=== PATIENT | female | born 1940 | race Caucasian/White ===

== ENCOUNTER 2021-03-31 09:39 | Emergency (ER) | payer OTHER ==
[2021-03-31 10:13] LABS: BASOPHIL 0 % (0-2); EOSINOPHIL 0.5 % (0-7); MCH 27.4 pg (25.0-31.0); MCHC 30.8 g/dL (32.0-36.0); MONOCYTE 1.4 % (0-12); MPV 10.7 fL (6.0-9.5); NRBC 0; PLT 176 K/uL (150-400); RBC 4.38 M/uL (4.20-5.40); RDW 16.3 % (11.5-14.0); WBC 2.2 K/uL (4.0-10.5)
[2021-03-31 10:17] LABS: NEUTROPHIL 91.2 % (41-80)
[2021-03-31 10:32] LABS: LACTIC ACID 2.4 mmol/L (0.4-1.9)
[2021-03-31 10:33] LABS: ALBUMIN 2.8 g/dL (3.4-5.0); BILIRUBIN - TOTAL 1.3 mg/dL (0.2-1.0); BUN/CREAT RATIO (CALC) 12.2 RATIO; CREATININE 1.56 mg/dL (0.51-0.95); GLOBULIN (CALCULATION) 4.4 g/dL; POTASSIUM 4.3 mmol/L (3.5-5.1); TOTAL PROTEIN 7.2 g/dL (6.4-8.2)
[2021-03-31 10:51] LABS: BILIRUBIN NEGATIVE (NEGATIVE); BLOOD 3+ Ery/uL (NEGATIVE); CLARITY CLEAR (CLEAR); COLOR YELLOW (YELLOW); GLUCOSE (U) NORMAL (NORMAL); LEUKOCYTES 3+ Leu/uL (NEGATIVE); NITRITE POSITIVE (NEGATIVE); PROTEIN 2+ mg/dL (NEGATIVE); UROBILINOGEN 0.2 mg/dL (0.2-1.0); pH 5.5 (5.0-9.0)
[2021-03-31 10:57] LABS: BACTERIA 3+; URINARY WBC TNTC
== END 2021-03-31 14:45 | disposition other institution (70) ==
LOC: FER 09:39
PROVIDERS: Emergency Medicine
DX: A41.9 Sepsis, unspecified organism (principal); N13.6 Pyonephrosis; Z86.73 Personal history of transient ischemic attack (TIA), and cerebral infarction without residual deficits; Z20.822 Contact with and (suspected) exposure to COVID-19
CPT/HCPCS: 36415; 70450; 71250; 80053; 81001; 83605; 84145; 85025; 87040; 87076; 87077; 87088; 87186; J2543; J7030; U0002

== ENCOUNTER 2021-06-21 15:56 | Emergency (ER) | payer OTHER ==
[2021-06-21 17:19] LABS: ALBUMIN 3.9 g/dL (3.4-5.0); BILIRUBIN - TOTAL 0.3 mg/dL (0.2-1.0); BUN/CREAT RATIO (CALC) 12.5 RATIO; CREATININE 1.04 mg/dL (0.51-0.95); GLOBULIN (CALCULATION) 3.6 g/dL; POTASSIUM 4.4 mmol/L (3.5-5.1); TOTAL PROTEIN 7.5 g/dL (6.4-8.2)
[2021-06-21 17:26] LABS: BASOPHIL 0.5 % (0-2); EOSINOPHIL 2.2 % (0-7); HCT 42.7 % (37.0-47.0); HGB 13.3 g/dl (12.5-16.0); LYMPHOCYTE 40.3 % (15-48); MCH 28.9 pg (25.0-31.0); MCHC 31.1 g/dL (32.0-36.0); MCV 92.6 fL (78.0-100.0); MONOCYTE 10.8 % (0-12); MPV 10.6 fL (6.0-9.5); NEUTROPHIL 45.8 % (41-80); NRBC 0; PLT 244 K/uL (150-400); RBC 4.61 M/uL (4.20-5.40); RDW 15.4 % (11.5-14.0); WBC 5.5 K/uL (4.0-10.5)
[2021-06-21 17:29] LABS: INR 1.04 (0.9-1.2); PTT 27.7 SECONDS (24.4-34.7)
[2021-06-21] MEDS ORDERED: NORCO 5-325 TA1 EACH PO (19:14)
== END 2021-06-21 19:36 | disposition home or self-care (01) ==
LOC: FER 15:56
PROVIDERS: Emergency Medicine
DX: M79.602 Pain in left arm (principal); M79.605 Pain in left leg; R03.0 Elevated blood-pressure reading, without diagnosis of hypertension; I10 Essential (primary) hypertension; R29.898 Other symptoms and signs involving the musculoskeletal system; Z86.73 Personal history of transient ischemic attack (TIA), and cerebral infarction without residual deficits
CPT/HCPCS: 36415; 70450; 71045; 80053; 84484; 85025; 85610; 85730; 93005; J2270; J2405

== ENCOUNTER 2022-08-05 12:40 | Emergency (ER) | payer OTHER ==
[~2022-08-05 12:40] MED LIST: NORCO 5-325 TA1 EACH PO
[2022-08-05 13:51] LABS: BASOPHIL 0.3 % (0-2); EOSINOPHIL 1.8 % (0-7); HCT 44.6 % (37.0-47.0); HGB 14.4 g/dl (12.5-16.0); LYMPHOCYTE 27.3 % (15-48); MCH 31.6 pg (25.0-31.0); MCHC 32.3 g/dL (32.0-36.0); MONOCYTE 9.4 % (0-12); MPV 10.6 fL (6.0-9.5); NEUTROPHIL 60.8 % (41-80); NRBC 0; PLT 197 K/uL (150-400); RBC 4.55 M/uL (4.20-5.40); RDW 12.7 % (11.5-14.0); WBC 6.8 K/uL (4.0-10.5)
[2022-08-05 14:03] LABS: BUN/CREAT RATIO (CALC) 17.9 RATIO; CREATININE 1.17 mg/dL (0.51-0.95); POTASSIUM 4.8 mmol/L (3.5-5.1)
[2022-08-05 15:36] LABS: BILIRUBIN NEGATIVE (NEGATIVE); BLOOD NEGATIVE Ery/uL (NEGATIVE); CLARITY CLEAR (CLEAR); COLOR YELLOW (YELLOW); GLUCOSE (U) NORMAL (NORMAL); LEUKOCYTES TRACE Leu/uL (NEGATIVE); NITRITE NEGATIVE (NEGATIVE); PROTEIN NEGATIVE (NEGATIVE); SPECIFIC GRAVITY 1.025 (1.001-1.030); UROBILINOGEN 0.2 mg/dL (0.2-1.0)
[2022-08-05 16:00] LABS: YEAST PRESENT
[2022-08-05 16:01] LABS: BACTERIA TRACE
[2022-08-05] MEDS ORDERED: AMOX TR-K CLV1 EAC4 PO (18:53)
[2022-08-05] MEDS ORDERED: FLOMAX 0.4 MG0.4 MG PO (18:53)
== END 2022-08-05 19:09 | disposition home or self-care (01) ==
LOC: FER 12:40
PROVIDERS: Emergency Medicine; Nurse Practitioner Family
DX: N13.0 Hydronephrosis with ureteropelvic junction obstruction (principal); N20.0 Calculus of kidney; N39.0 Urinary tract infection, site not specified; I10 Essential (primary) hypertension; Z87.891 Personal history of nicotine dependence
CPT/HCPCS: 36415; 80048; 81001; 85025; 87088; J7030